=== PATIENT | female | born 1970 | race Caucasian/White ===

== ENCOUNTER 2017-03-09 16:16 | Emergency (ER) | payer OTHER ==
[2017-03-09 16:17] VITALS: BMI 37.1
--- NOTE | 2017-03-09 17:02 | C.PDOC ---
History Of Present Illness 47 yo female come in for evaluation of B/L neck pain gradually developed since yesterday. Pt sts, " woke up with this pain". Pain is diffuse over back of neck , worse with head rotation. Otherwise, pt denies known trauma or injury, fever, chills, denies worse headache of life, dizziness, vertigo, visual changes, focal deficits, recent illness, drooling, dysphagia, dyspnea, CP, SOB, dyspnea, diaphoresis, palpitation, denies abd. pain, weakness, sensory or vascular deficits to B/L Es. Ambulate to ED, appears in pain. Time Seen by Provider: 03/09/17 16:54 Chief Complaint (Nursing): Headache History Per: Patient History/Exam Limitations: no limitations Onset/Duration Of Symptoms: Gradual (1 day) Past Medical History Reviewed: Historical Data, Nursing Documentation, Vital Signs Vital Signs: Last Vital Signs Temp 97.3 F L 03/09/17 17:45 Pulse 87 03/09/17 17:45 Resp 20 03/09/17 17:45 BP 125/88 03/09/17 17:45 Pulse Ox 98 03/09/17 17:45 Surgical History: Appendectomy - [facility] Procedures ARTIF RUPT MEMBRANES NEC (10/17/01) INJECT/INFUSE ELECTROLYT (04/16/15) INJECT/INFUSE NEC (04/16/15) MANUAL ASSIST DELIV NEC (10/17/01) NEBULIZER THERAPY (04/16/15) Family History: States: No Known Family Hx - Social History Hx Tobacco Use: Yes Hx Alcohol Use: No Hx Substance Use: No - Immunization History Hx Tetanus Toxoid Vaccination: No Hx Influenza Vaccination: No Hx Pneumococcal Vaccination: No Review Of Systems Except As Marked, All Systems Reviewed And Found Negative. Constitutional: Negative for: Fever, Chills Eyes: Negative for: Vision Change Cardiovascular: Negative for: Chest Pain, Palpitations Respiratory: Negative for: Shortness of Breath Gastrointestinal: Negative for: Abdominal Pain Musculoskeletal: Positive for: Neck Pain (Bilateral neck pain ) Neurological: Negative for: Headache, Dizziness Physical Exam - Physical Exam Appears: Well, Non-toxic, No Acute Distress Skin: Normal Color, Warm, No Rash, No Ecchymosis Head: Normacephalic Eye(s): bilateral: PERRL Ear(s): Bilateral: Normal Oral Mucosa: Moist Neck: Decreased ROM (head rotation to B/L sides due to pain), Paracervical Tenderness (diffuse tenderness with trapezium muscle spasm from occipital alexandra down to upper back area. No midline tenderness), Supple Cardiovascular: Rhythm Regular Respiratory: No Decreased Breath Sounds, No Accessory Muscle Use, No Rales, No Rhonchi, No Stridor, No Wheezing Back: No CVA Tenderness Extremity: No Pedal Edema Neurological/Psych: Oriented x3, Normal Speech, Normal Motor, Normal Sensation, Normal Reflexes ED Course And Treatment O2 Sat by Pulse Oximetry: 100 Pulse Ox Interpretation: Normal - Other Rad X-Ray - Cervical Spine X-Ray: Interpreted by Me, Viewed By Me Interpretation: no acute fx or sublux. (+)DJD Progress Note: On re-evaluation, pt is afebrile, hemodynamicaly stable. reports moderate improvement in neck pain. Non-toxic. Tolerate Po well in ED. PulsEOx 100% RA. ENT: no acute findings. neck: exam c/w cervical strain. (-) meningeal sign. Lungs: CTA B/L, BS equal B/L. Neurologicaly intact. Xray review and appears w/o acute abnoramlities. Soft C-collar applied. Pt advised on course of ds. ref. to F/u [facility] PMD in 1-2 days for re-eval. return to ED at any time if any worsening or new changes. Medical Decision Making Medical Decision Making: PLAN: * X-Ray - Cervical Spine * POC * Valium Po * Solumedrol IM Disposition Counseled Patient/Family Regarding: Studies Performed, Diagnosis, Need For Followup, Rx Given - Disposition Referrals: Renea Skelton DO [Staff Provider] - Disposition: HOME/ ROUTINE Disposition Time: 17:41 Condition: STABLE Additional Instructions: Soft C-collar for 1 week Take medication as prescribed Follow up with PMD in 2-3 days for re-evaluation. Return to ED if any worsening or new changes. 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 - Scribe Statement The provider has reviewed the documentation as recorded by the Scribe Janis Pollard All medical record entries made by the Jessica were at my direction and personally dictated by me. I have reviewed the chart and agree that the record accurately reflects my personal performance of the history, physical exam, medical decision making, and the department course for this patient. I have also personally directed, reviewed, and agree with the discharge instructions and disposition.
[2017-03-09] MEDS ORDERED: MethylPREDNISolone 40 mg Vial IM STA (17:09)
[2017-03-09 17:58] VITALS: BP 125/88; PULSE 87; RESP 20; TEMP 97.3
--- NOTE | 2017-03-10 09:36 | RAD ---
PROCEDURE: Cervical Spine Radiographs. HISTORY: Pain. COMPARISON: None. FINDINGS: BONES: Straightening of the cervical spine and slight reversal of the normal lordosis noted could be due to severe degenerative changes. No definite radiographic evidence of acute displaced fracture or subluxation. DISC SPACES: Sdah-je-vynbtala multilevel narrowing of the disc spaces noted especially at C5-C6 and C6-C7 SOFT TISSUES: Normal. No prevertebral soft tissue swelling. OTHER FINDINGS: None. IMPRESSION: No definite radiographic evidence of acute fracture or subluxation. Straightening of the cervical spine and slight reversal of the normal lordosis which could be due to severe degenerative changes. Severe degenerative changes more prominent at the lower cervical spine associated with large anterior osteophyte formation and multilevel narrowing of the disc spaces.
[2017-03-11 07:44] VITALS: O2SAT 100
== END 2017-03-09 17:45 | disposition home or self-care (01) ==
LOC: C.ER 16:16
DX: S16.1XXA Strain of muscle, fascia and tendon at neck level, initial encounter (principal); X58.XXXA Exposure to other specified factors, initial encounter
CPT/HCPCS: 72040; 96372; 99285; J2920